=== PATIENT | male | born 1945 | race Caucasian/White ===

== ENCOUNTER 2018-04-06 11:48 | Inpatient (IN) ==
[2018-04-06 12:30] LABS: Basophils % 0.4 % (0.0-0.8); Eosinophils # 0.3 10*3/uL (0.0-0.87); Eosinophils % 6.4 % (0.00-10.9); Hematocrit 40.5 VOL% (42.0-52.0); Immature Granulocytes % 0.6 %; Immature Granulocytes Absolute 0.03 #; Lymphocytes # 1.2 10*3/uL (1.4-4.0); Lymphocytes % 23.5 % (21.2-54.2); Mean Corpuscular HGB Conc 34.6 GM/DL (32-36); Mean Corpuscular Hemoglobin 30 PG (27-34); Mean Corpuscular Volume 86.5 FL (87-102); Mean Platelet Volume 11.4 FL (9.6-12.0); Monocytes # 0.4 10*3/uL (0.11-0.8); Monocytes % 7.4 % (1.7-12.7); Neutrophils # 3.1 10*3/uL (1.4-7.4); Neutrophils % 61.7 % (38.7-73.9); Platelet Count 188 T/CUMM (130-400); Red Blood Count 4.68 MC/CUMM (3.8-5.5); Red Cell Distribution Width 12.2 % (9.3-17.3)
[2018-04-06 12:41] LABS: INR 0.9; PT Patient Result 10.2 SECS; Partial Thromboplastin Time 26.7 SECS (0-40)
[2018-04-06 13:02] LABS: Alanine Aminotransferase 46 U/L (16-61); Albumin 3.5 G/DL (3.4-5.0); Alkaline Phosphatase 64 U/L (45-117); Ammonia 88 UMOL/L (11-32); Aspartate Amino Transferase 36 U/L (0-37); Blood Urea Nitrogen 15 MG/DL (7-18); Calcium 8.8 MG/DL (8.5-10.1); Glucose 258 MG/DL (74-106); Osmolality,Calculated 282.8 MOS/KG (273-304); Potassium 4.3 MMOL/L (3.5-5.1); Sodium 137 MMOL/L (136-145); Total Protein 7.2 G/DL (6.4-8.3); Troponin I < 0.015 NG/ML (0.00-0.045)
[2018-04-06] MEDS ORDERED: ONDANSETRON 4 MG/2 ML VIAL IV PRN (14:23)
[2018-04-06] MEDS ORDERED: ACETAMINOPHEN 325 MG TABLET PO PRN (14:23)
[2018-04-06] MEDS ORDERED: DEXTROSE 50% 25 GM/50 ML VIAL IV PRN (14:23)
[2018-04-06] MEDS ORDERED: GLUCAGON 1 MG VIAL IM PRN (14:23)
[2018-04-06] MEDS ORDERED: LABETALOL 20 MG/4 ML SYRINGE IV PRN (14:23)
[2018-04-06] MEDS ORDERED: ENOXAPARIN 40 MG/0.4 ML SYRINGE SUBCUT SCH (16:00)
[2018-04-06] MEDS: INSULIN LISPRO 100 UNIT/ML SUBCUT SCH ×2 (17:55→21:10)
[2018-04-06] MEDS: CLOPIDOGREL 75 MG TABLET PO SCH (17:59)
[2018-04-06] MEDS ORDERED: CHOLECALCIFEROL 1,000 UNIT TABLET PO SCH (21:00)
[2018-04-06] MEDS ORDERED: OMEGA 3 ACID ETHYL ESTERS 1 GM CAPSULE PO SCH (21:00)
[2018-04-06] MEDS ORDERED: ASCORBIC ACID 500 MG TABLET PO SCH (21:00)
[2018-04-06] MEDS ORDERED: Cinnamon Bark [Cinnamon] 500 MG PO SCH (21:00)
[2018-04-06] MEDS ORDERED: ROSUVASTATIN 20 MG TABLET PO SCH (21:00)
[2018-04-06] MEDS ORDERED: VERAPAMIL 80 MG TABLET PO SCH (21:00)
[2018-04-06] MEDS ORDERED: COENZYME Q10 100 MG CAPSULE PO SCH (21:00)
[2018-04-06] MEDS ORDERED: ASPIRIN EC 81 MG TABLET PO SCH (21:00)
[2018-04-06] MEDS ORDERED: CYANOCOBALAMIN 500 MCG TABLET PO SCH (21:00)
[2018-04-06] MEDS: DOCUSATE SODIUM 100 MG CAPSULE PO SCH (21:07)
[2018-04-06 22:29] LABS: Apearance,Urine CLEAR (Clear); Bilirubin,Urine Negative (Negative); Blood, Urine Negative (Negative); Glucose,Urine (UA) >=500 mg/dL (Negative); Ketones,Urine Negative (Negative); Nitrite,Urine Negative (Negative); Protein,Urine 30 MG/DL; RBC,Urine 1 /HPF (0-4); Urine Color Yellow (Yellow); Urine Specific Gravity 1.014 (1.001-1.035); Urine Urobilinogen < 2.0 EU/DL (0.2-1.0); WBC,Urine 1 /HPF (0-6)
[2018-04-06] MEDS ORDERED: ZALEPLON 5 MG CAPSULE PO PRN (23:40)
[2018-04-07 05:42] LABS: Basophils % 0.7 % (0.0-0.8); Eosinophils # 0.3 10*3/uL (0.0-0.87); Eosinophils % 5.7 % (0.00-10.9); Hematocrit 38.9 VOL% (42.0-52.0); Hemoglobin 13.2 GM/DL (14.0-18.0); Immature Granulocytes % 0.7 %; Immature Granulocytes Absolute 0.04 #; Lymphocytes # 1.8 10*3/uL (1.4-4.0); Lymphocytes % 32.8 % (21.2-54.2); Mean Corpuscular HGB Conc 33.9 GM/DL (32-36); Mean Corpuscular Hemoglobin 30 PG (27-34); Mean Corpuscular Volume 87.6 FL (87-102); Mean Platelet Volume 11.5 FL (9.6-12.0); Monocytes # 0.4 10*3/uL (0.11-0.8); Monocytes % 7.7 % (1.7-12.7); Neutrophils # 2.8 10*3/uL (1.4-7.4); Neutrophils % 52.4 % (38.7-73.9); Platelet Count 191 T/CUMM (130-400); Red Blood Count 4.44 MC/CUMM (3.8-5.5); Red Cell Distribution Width 12.2 % (9.3-17.3); White Blood Count 5.4 T/CUMM (4-12)
[2018-04-07 06:05] LABS: Albumin 3.2 G/DL (3.4-5.0); Bilirubin,Total 0.4 MG/DL (0.2-1.0); Calcium 8.3 MG/DL (8.5-10.1); Osmolality,Calculated 276.1 MOS/KG (273-304); Risk Ratio 4.35; Thyroid Stimulating Hormone 3.24 uIU/ml (0.358-3.74); Total Protein 6.5 G/DL (6.4-8.3); VLDL CHOLESTEROL 102.2 MG/DL
[2018-04-07] MEDS ORDERED: MAGNESIUM SULF RIDER 2 GM in PREMIX 1 EACH IV ONE (07:22)
[2018-04-07] MEDS: INSULIN LISPRO 100 UNIT/ML SUBCUT SCH ×3 (10:29→17:11)
[2018-04-07] MEDS ORDERED: OMEGA 3 ACID ETHYL ESTERS 1 GM CAPSULE PO SCH (10:30)
[2018-04-07] MEDS: DOCUSATE SODIUM 100 MG CAPSULE PO SCH (10:37)
[2018-04-07] MEDS: CLOPIDOGREL 75 MG TABLET PO SCH (10:37)
[2018-04-07 16:21] VITALS: BP 128/93
== END 2018-04-07 17:34 | disposition hospice, home (50) | DRG 69 ==
LOC: N.ED 11:48 → N.EDINP 14:21 → N.4E 16:21
PROVIDERS: ADMIT Family Medicine; ATTEND Family Medicine

== ENCOUNTER 2018-04-24 15:18 | Inpatient (IN) ==
[2018-04-24 16:06] LABS: Basophils % 0.3 % (0.0-0.8); Eosinophils # 0.2 10*3/uL (0.0-0.87); Eosinophils % 3.1 % (0.00-10.9); Hematocrit 34.8 VOL% (42.0-52.0); Immature Granulocytes % 1.3 %; Lymphocytes % 13.4 % (21.2-54.2); Mean Corpuscular HGB Conc 31.6 GM/DL (32-36); Mean Corpuscular Hemoglobin 30 PG (27-34); Mean Corpuscular Volume 93.5 FL (87-102); Mean Platelet Volume 9.9 FL (9.6-12.0); Monocytes # 0.4 10*3/uL (0.11-0.8); Monocytes % 4.7 % (1.7-12.7); Neutrophils # 5.9 10*3/uL (1.4-7.4); Neutrophils % 77.2 % (38.7-73.9); Platelet Count 319 T/CUMM (130-400); Red Blood Count 3.72 MC/CUMM (3.8-5.5); Red Cell Distribution Width 14.2 % (9.3-17.3); White Blood Count 7.7 T/CUMM (4-12)
[2018-04-24 16:33] LABS: Calcium 9.2 MG/DL (8.5-10.1); Potassium 4.9 MMOL/L (3.5-5.1)
[2018-04-24] MEDS ORDERED: ONDANSETRON 4 MG/2 ML VIAL IV PRN (16:56)
[2018-04-24] MEDS ORDERED: GLUCAGON 1 MG VIAL IM PRN (16:56)
[2018-04-24] MEDS ORDERED: DEXTROSE 50% 25 GM/50 ML SYRINGE IV PRN (16:56)
[2018-04-24] MEDS ORDERED: ACETAMINOPHEN 325 MG TABLET PO PRN (16:56)
[2018-04-24] MEDS ORDERED: diphenhydrAMINE CAP 25 MG CAPSULE PO PRN (16:56)
[2018-04-24] MEDS ORDERED: SODIUM CHLORIDE 0.9% 1,000 ML IV SCH (17:00)
[2018-04-24] MEDS ORDERED: ENOXAPARIN 80 MG/0.8 ML SYRINGE SUBCUT SCH (17:30)
[2018-04-24] MEDS: RIVAROXABAN 15 MG TABLET PO SCH (17:59)
[2018-04-24] MEDS: CARVEDILOL 12.5 MG TABLET PO SCH (21:57)
[2018-04-24] MEDS: MEMANTINE 10 MG TABLET PO SCH (21:57)
[2018-04-24] MEDS: DOCUSATE SODIUM 100 MG CAPSULE PO SCH (21:57)
[2018-04-24] MEDS: SIMVASTATIN 20 MG TABLET PO SCH (21:57)
[2018-04-24] MEDS: INSULIN REGULAR 100 UNIT/ML SUBCUT SCH (22:04)
[2018-04-25 05:00] LABS: Basophils % 0.4 % (0.0-0.8); Eosinophils # 0.2 10*3/uL (0.0-0.87); Eosinophils % 3.3 % (0.00-10.9); Hematocrit 30.6 VOL% (42.0-52.0); Hemoglobin 9.9 GM/DL (14.0-18.0); Immature Granulocytes % 1.1 %; Immature Granulocytes Absolute 0.06 #; Lymphocytes # 1.2 10*3/uL (1.4-4.0); Lymphocytes % 21.4 % (21.2-54.2); Mean Corpuscular HGB Conc 32.4 GM/DL (32-36); Mean Corpuscular Hemoglobin 30 PG (27-34); Mean Corpuscular Volume 92.7 FL (87-102); Mean Platelet Volume 10.2 FL (9.6-12.0); Monocytes # 0.4 10*3/uL (0.11-0.8); Monocytes % 6.5 % (1.7-12.7); Neutrophils # 3.7 10*3/uL (1.4-7.4); Neutrophils % 67.3 % (38.7-73.9); Platelet Count 269 T/CUMM (130-400); White Blood Count 5.5 T/CUMM (4-12)
[2018-04-25 05:26] LABS: Calcium 8.2 MG/DL (8.5-10.1); Osmolality,Calculated 283.5 MOS/KG (273-304); Potassium 4.1 MMOL/L (3.5-5.1)
[2018-04-25] MEDS ORDERED: DIAZEPAM 5 MG TABLET PO ONE (09:27)
[2018-04-25] MEDS: INSULIN REGULAR 100 UNIT/ML SUBCUT SCH ×4 (09:42→21:30)
[2018-04-25] MEDS: CYANOCOBALAMIN 500 MCG TABLET PO SCH (14:24)
[2018-04-25] MEDS: CHOLECALCIFEROL 1,000 UNIT TABLET PO SCH (14:25)
[2018-04-25] MEDS: ASCORBIC ACID 500 MG TABLET PO SCH (14:26)
[2018-04-25] MEDS: DOCUSATE SODIUM 100 MG CAPSULE PO SCH ×2 (14:26→21:28)
[2018-04-25] MEDS: RIVAROXABAN 15 MG TABLET PO SCH ×2 (14:27→18:26)
[2018-04-25] MEDS: POLYETHYLENE GLYCOL POWDER 17 GM PACK PO SCH (14:27)
[2018-04-25] MEDS: lamoTRIgine 25 MG TABLET PO SCH (14:27)
[2018-04-25] MEDS: CARVEDILOL 12.5 MG TABLET PO SCH ×2 (14:27→21:28)
[2018-04-25] MEDS: ASPIRIN EC 81 MG TABLET PO SCH (14:27)
[2018-04-25] MEDS: LOSARTAN 25 MG TABLET PO SCH (14:28)
[2018-04-25] MEDS: MEMANTINE 10 MG TABLET PO SCH ×2 (14:28→21:28)
[2018-04-25] MEDS: CLOPIDOGREL 75 MG TABLET PO SCH (14:28)
[2018-04-25] MEDS: amLODIPine 10 MG TABLET PO SCH (14:28)
[2018-04-25] MEDS: DONEPEZIL 10 MG TABLET PO SCH (14:30)
[2018-04-25] MEDS ORDERED: methylPREDNISolone SOD SUC 125 MG/2 ML VIAL IV ONE (18:51)
[2018-04-25] MEDS: SIMVASTATIN 20 MG TABLET PO SCH (21:28)
[2018-04-26 04:30] LABS: ABG Base Excess -1.5 MMOL/L (-2.5-2.5); ABG HCO3 23.1 MMOL/L (20-26); ABG Oxygen Saturation 97.1 % (95-100); ABG PCO2 39.5 MM HG (35-48); ABG PH 7.381 (7.35-7.45); ABG PO2 89.4 MM HG (80-95); ABG TCO2 21.3 MMOL/L (23-27); Allen Test Positive
[2018-04-26 04:47] LABS: Hematocrit 31.6 VOL% (42.0-52.0); Hemoglobin 10.3 GM/DL (14.0-18.0); Immature Granulocytes % 1.1 %; Immature Granulocytes Absolute 0.07 #; Lymphocytes # 0.4 10*3/uL (1.4-4.0); Lymphocytes % 6.8 % (21.2-54.2); Mean Corpuscular HGB Conc 32.6 GM/DL (32-36); Mean Corpuscular Hemoglobin 30 PG (27-34); Mean Corpuscular Volume 92.1 FL (87-102); Mean Platelet Volume 10.1 FL (9.6-12.0); Monocytes # 0.1 10*3/uL (0.11-0.8); Monocytes % 0.9 % (1.7-12.7); Neutrophils # 5.8 10*3/uL (1.4-7.4); Neutrophils % 91.2 % (38.7-73.9); Platelet Count 255 T/CUMM (130-400); Red Blood Count 3.43 MC/CUMM (3.8-5.5); Red Cell Distribution Width 13.5 % (9.3-17.3); White Blood Count 6.4 T/CUMM (4-12)
[2018-04-26 05:03] LABS: Calcium 8.2 MG/DL (8.5-10.1); Osmolality,Calculated 290.1 MOS/KG (273-304)
[2018-04-26 05:24] LABS: Band Neutrophils 1 % (0-10); Lymphocytes 7 % (20-55); Segmented Neutrophils 91 % (50-85); Total Cells Counted 100
[2018-04-26 05:25] LABS: Microcytosis Slight
[2018-04-26] MEDS: LOSARTAN 25 MG TABLET PO SCH (08:17)
[2018-04-26] MEDS: DOCUSATE SODIUM 100 MG CAPSULE PO SCH (08:17)
[2018-04-26] MEDS: lamoTRIgine 25 MG TABLET PO SCH (08:17)
[2018-04-26] MEDS: CHOLECALCIFEROL 1,000 UNIT TABLET PO SCH (08:17)
[2018-04-26] MEDS: CLOPIDOGREL 75 MG TABLET PO SCH (08:18)
[2018-04-26] MEDS: ASCORBIC ACID 500 MG TABLET PO SCH (08:18)
[2018-04-26] MEDS: CYANOCOBALAMIN 500 MCG TABLET PO SCH (08:18)
[2018-04-26] MEDS: amLODIPine 10 MG TABLET PO SCH (08:18)
[2018-04-26] MEDS: CARVEDILOL 12.5 MG TABLET PO SCH (08:18)
[2018-04-26] MEDS: MEMANTINE 10 MG TABLET PO SCH (08:18)
[2018-04-26] MEDS: DONEPEZIL 10 MG TABLET PO SCH (08:18)
[2018-04-26] MEDS: ASPIRIN EC 81 MG TABLET PO SCH (08:18)
[2018-04-26] MEDS: RIVAROXABAN 15 MG TABLET PO SCH (08:18)
[2018-04-26] MEDS: POLYETHYLENE GLYCOL POWDER 17 GM PACK PO SCH (08:19)
[2018-04-26] MEDS: INSULIN REGULAR 100 UNIT/ML SUBCUT SCH ×2 (08:29→11:45)
[2018-04-26 12:05] VITALS: BP 130/63
== END 2018-04-26 14:42 | disposition home or self-care (01) | DRG 167 ==
LOC: N.CP 15:18 → N.SDSINP 16:47
PROVIDERS: ADMIT Internal Medicine Cardiovascular Disease; ATTEND Internal Medicine Cardiovascular Disease